=== PATIENT | male | born 1995 | race Caucasian/White ===

== ENCOUNTER 2017-11-15 19:31 | Emergency (ER) | payer OTHER ==
[~2017-11-15] VITALS: Ht 180.3 cm; Wt 74.8 kg
--- NOTE | 2017-11-15 19:46 | ED GU-Male ---
General Stated Complaint: POSS KIDNEY STONES Source: patient Exam Limitations: no limitations History of Present Illness Time seen by provider: 19:40 Initial Comments Patient has ER private conveyance with a chief complaint of to 3 days now presently worsening dysuria with some discharge. He thinks he might have a kidney stone because is also some pain in his kidneys right more than left. His mother had a history of kidney stones he does not. He is sexually active with women only. He denies any fevers, nausea, chills, diarrhea, constipation. No other significant medical problems other than he is type I diabetic. He wears an insulin pump. Allergies and Home Medications Allergies Coded Allergies: No Known Drug Allergies (Unverified , 11/15/17) Home Medications Cephalexin 500 Mg Capsule, 500 MG PO BID for 5 Days, #10 Ref 0 Prescribed by: TIMBO PENALOZA on 11/15/172042 Constitutional: No chills, No fever EENTM: No ear discharge, No ear pain Respiratory: No cough, No short of breath Gastrointestinal: No abdominal pain, No constipation, No diarrhea, No nausea Genitourinary: burning, discharge, dysuria Musculoskeletal: No back pain, No joint pain Skin: No pruritus, No rash Psychiatric/Neurological: Denies Headache, Denies Numbness, Denies Paresthesia Past Aqnvllf-Fjfywv-Aoodbr Hx Patient Social History Recent Foreign Travel: No Contact w/Someone Who Travel: No Physical Exam Vital Signs Vital Sign - Last 12Hours 11/15/17 19:44 Temp 97.1 Pulse 117 Resp 16 B/P (MAP) 132/70 (90) Pulse Ox 96 O2 Delivery Room Air Capillary Refill : General Appearance: WD/WN, no apparent distress HEENT: PERRL/EOMI, pharynx normal Gastrointestinal: normal bowel sounds, non tender, soft Back: normal inspection, CVA tenderness (R) (mild) Extremities: normal range of motion, normal inspection, no pedal edema Neurologic/Psychiatric: alert, normal mood/affect, oriented x 3 Skin: normal color, warm/dry Progress/Results/Core Measures Suspected Sepsis SIRS Temperature: Pulse: Respiratory Rate: Blood Pressure / Mean: Results/Orders Lab Results Laboratory Tests Test 11/15/17 19:40 Range/Units Urine Color YELLOW Urine Clarity CLEAR Urine pH 6 5-9 Urine Specific Comfort 1.010 L 1.016-1.022 Urine Protein NEGATIVE NEGATIVE Urine Glucose (UA) NEGATIVE NEGATIVE Urine Ketones NEGATIVE NEGATIVE Urine Nitrite NEGATIVE NEGATIVE Urine Bilirubin NEGATIVE NEGATIVE Urine Urobilinogen NORMAL NORMAL MG/DL Urine Leukocyte Esterase 3+ H NEGATIVE Urine RBC (Auto) NEGATIVE NEGATIVE Urine RBC NONE /HPF Urine WBC 25-50 H /HPF Urine Crystals NONE /LPF Urine Bacteria TRACE /HPF Urine Casts NONE /LPF Urine Mucus NEGATIVE /LPF Urine Culture Indicated YES My Orders Orders - TIMBO PENALOZA Ua Culture If Indicated (11/15/17 19:40) Neis Paul Dna Urine Test (11/15/17 19:43) Chlamydia Dna Urine Test (11/15/17 19:40) Urine Culture (11/15/17 19:40) Ceftriaxone Injection (Rocephin Injectio (11/15/17 20:45) Lidocaine 1% Injection (Xylocaine 1% Inj (11/15/17 20:45) Azithromycin Tablet (Zithromax Tablet) (11/15/17 20:45) Vital Signs/I&O Vital Sign - Last 12Hours 11/15/17 19:44 Temp 97.1 Pulse 117 Resp 16 B/P (MAP) 132/70 (90) Pulse Ox 96 O2 Delivery Room Air Capillary Refill : Progress Note : Time: 20:38 Progress Note Not very convincing clinical exam for kidney stones and there is no blood in the urine so we'll treat him for a urinary tract infection and have him follow- up with his [facility] for the results of the committee and gonorrhea testing. If his pain worsens or does not improve with antibiotics he should represent either there or here for further evaluation. However the patient has required no pain medicine and was quite comfortable to move around the room so a kidney stone seems unlikely. Departure Impression Impression: Primary Impression: UTI (urinary tract infection) Qualified Codes: N30.00 - Acute cystitis without hematuria Disposition: 01 HOME, SELF-CARE Condition: Stable Departure-Patient Inst. Decision time for Depature: 20:43 Referrals: [facility] (PCP/Family) Primary Care Physician Patient Instructions: Acute Cystitis (DC) Add. Discharge Instructions: Drink lots of fluids to try and flush your bladder out. Take the antibiotics 1 capsule twice a day to completion for 5 more days starting tomorrow morning. If your symptoms do not improve or your pain worsens he should represent to [facility] or to the ER for further evaluation and management. Tylenol 1000 mg every 8 hours and or ibuprofen 800 mg every 8 hours for pain. The results for your STI testing should be back in a few days and we will call you if they are positive. Scripts Cephalexin (Keflex) 500 Mg Capsule 500 MG PO BID for 5 Days, #10 CAP 0 Refills Prov: TIMBO PENALOZA 11/15/17 Work/School Note: School/Childcare Release Date Seen in the Emergency Department: Nov 15, 2017 Time Dismissed from Emergency Department: 20:43 Return to School: Nov 16, 2017 Restrictions: No Restrictions TIMBO PENALOZA Nov 15, 2017 19:46
[2017-11-15 19:55] LABS: BILIRUBIN,URINE NEGATIVE (NEGATIVE); KETONES,URINE NEGATIVE (NEGATIVE); LEUKOCYTE ESTERASE ,URINE 3+ (NEGATIVE); NITRITE,URINE NEGATIVE (NEGATIVE); PH,URINE 6 (5-9); PROTEIN,URINE NEGATIVE (NEGATIVE); UROBILINOGEN,URINE NORMAL (NORMAL)
[2017-11-15 20:08] LABS: WBC,URINE 25-50 /HPF
[2017-11-15] MEDS ORDERED: CEPH-507 PO (20:43)
[2017-11-15] MEDS ORDERED: LIDOCAINE 1% INJ 20 ML (XYLOCAINE) VIAL INJ ONE (20:45)
[2017-11-15] MEDS ORDERED: cefTRIAXone 250 MG (ROCEPHIN) VIAL IM ONE (20:45)
[2017-11-15] MEDS ORDERED: AZITHROMYCIN 250 MG TAB (ZITHROMAX) PO SCH (20:45)
[2017-11-15] MEDS ORDERED: LIDOCAINE 1% INJ 50 ML (XYLOCAINE) VIAL ONE (20:48)
[2017-11-15 21:06] VITALS: BP 112/78
[2017-11-18 16:11] LABS: CHLAMYDIA DNA URINE Detected (Not Detected); NEISSERIA GONORRHEA DNA URINE Not Detected (Not Detected)
== END 2017-11-15 21:06 | disposition home or self-care (01) ==
LOC: ER 19:33
DX: N39.0 Urinary tract infection, site not specified (principal)
CPT/HCPCS: 36415; 81000; 87088; 87491; 87591; 96372; 99284